=== PATIENT | female | born 1970 | race Caucasian/White ===

== ENCOUNTER 2018-06-08 17:03 | Emergency (ER) | payer OTHER ==
[~2018-06-08] VITALS: Ht 170.2 cm; Wt 132.2 kg
[2018-06-08 17:15] VITALS: BP 137/102; Ht 170.2 cm; Wt 132.2 kg
== END 2018-06-08 18:12 | disposition home or self-care (01) ==
LOC: ED 17:03
DX: S63.617A Unspecified sprain of left little finger, initial encounter (principal); F41.9 Anxiety disorder, unspecified; Z88.0 Allergy status to penicillin; Z88.5 Allergy status to narcotic agent; Z90.49 Acquired absence of other specified parts of digestive tract; X50.9XXA Other and unspecified overexertion or strenuous movements or postures, initial encounter; Y93.89 Activity, other specified; Y99.8 Other external cause status; Y92.89 Other specified places as the place of occurrence of the external cause